=== PATIENT | female | born 1950 | race Caucasian/White ===

== ENCOUNTER 2019-01-22 06:44 | Inpatient (IN) ==
[2019-01-16 16:25] LABS: Appearance,Urine CLEAR; Bacteria,Urine 0 /hpf (0); Bilirubin,Urine NEG (NEG); Color,Urine YELLOW; Glucose,Urine (UA) NEGATIVE (NEG); Leukocyte Esterase,Urine NEG /uL (NEG); Mucus,Urine FEW /hpf (0); Protein,Urine NEG (NEG); Specific Gravity,Urine 1.024 (1.000-1.035); Urine Blood 0.03 mg/dL (<0.03); Urine Hyaline Cast 9 /lpf (0-2); Urine RBC 1 /hpf (0-1); Urine Squamous Epithelial Cell 4 /hpf (0-4); Urine WBC 4 /hpf (0-4); Urobilinogen,Urine NEG (NEG)
[2019-01-16 17:05] LABS: Basophils # (Auto) 0 K/mcL (0.0-0.3); Basophils % (Auto) 0.3 % (0.0-2.0); Eosinophils # (Auto) 0.1 K/mcL (0.0-0.7); Eosinophils % (Auto) 1.7 % (0.0-7.0); Granulocytes % (Auto) 65.6 % (38.0-78.0); Lymphocytes # (Auto) 2.1 K/mcL (1.5-4.8); Lymphocytes % (Auto) 24.6 % (15.5-49.0); Mean Cell Volume 90.9 fL (80.0-100.0); Monocytes # (Auto) 0.7 K/mcL (0.1-0.9); Monocytes % (Auto) 7.8 % (1.0-12.0); Platelet Count 240 K/mcL (140-440); RBC 4.28 M/mcL (4.00-5.20); Red Cell Distribution Width 12.5 % (11.5-14.5)
[2019-01-16 17:33] LABS: Estimated Average Glucose(eAG) 151 mg/dL; Hemoglobin A1C 6.9 % HGB (4.0-6.0)
[2019-01-16 18:15] LABS: Blood Urea Nitrogen 21 mg/dl (8-23)
[2019-01-22] MEDS ORDERED: VANCOMYCIN 1,500 MG in 0.9 % SODIUM CHLORIDE 500 ML IV SCH (07:00)
[2019-01-22] MEDS ORDERED: 0.9 % SODIUM CHLORIDE 9 ML, KETOROLAC 30 MG, ROPIVACAINE HCL/PF 49.5 ML, EPINEPHrine 0.... IJ SCH (07:00)
[2019-01-22] MEDS ORDERED: PREGABALIN 75 MG CAPSULE PO SCH (07:00)
[2019-01-22] MEDS ORDERED: CELECOXIB 200 MG CAPSULE PO SCH (07:00)
[2019-01-22] MEDS ORDERED: oxyCODONE 10 MG TAB.ER.12H PO SCH (07:00)
[2019-01-22] MEDS ORDERED: TRANEXAMIC ACID 1,000 MG/10 ML VIAL IV ONE ×2 (09:20→11:22)
[2019-01-22] MEDS ORDERED: LIDOCAINE HCL/PF 100 MG/5 ML SYRINGE IV ONE (09:20)
[2019-01-22] MEDS ORDERED: KETAMINE 100 MG/ML ML IV ONE (09:20)
[2019-01-22] MEDS ORDERED: ONDANSETRON 4 MG/2 ML VIAL IV ONE (09:20)
[2019-01-22] MEDS ORDERED: ROPIVACAINE HCL/PF 30 ML VIAL IJ ONE (09:20)
[2019-01-22] MEDS ORDERED: MIDAZOLAM 5 MG/5 ML VIAL IV ONE (09:20)
[2019-01-22] MEDS ORDERED: PROPOFOL 200 MG/20 ML VIAL IV ONE (09:20)
[2019-01-22] MEDS ORDERED: GLYCOPYRROLATE 0.2 MG/ML VIAL IV ONE (09:20)
[2019-01-22] MEDS ORDERED: PHENYLEPHRINE 10 MG/ML VIAL IV ONE (09:20)
[2019-01-22] MEDS ORDERED: ONDANSETRON 4 MG/2 ML VIAL IV PRN ×2 (11:08→11:22)
[2019-01-22] MEDS ORDERED: fentaNYL 100 MCG/2 ML VIAL IV PRN (11:08)
[2019-01-22] MEDS ORDERED: MEPERIDINE 25 MG/ML SYRINGE IV PRN (11:08)
[2019-01-22] MEDS ORDERED: IPRATROPIUM/ALBUTEROL 3 ML AMPUL.NEB NEB PRN (11:08)
[2019-01-22] MEDS ORDERED: METHOCARBAMOL 1,000 MG/10 ML VIAL IV PRN (11:08)
[2019-01-22] MEDS ORDERED: KETOROLAC 15 MG/ML VIAL IV PRN (11:08)
[2019-01-22] MEDS ORDERED: ACETAMINOPHEN 1,000 MG/100 ML BOTTLE IV ONE (11:08)
[2019-01-22] MEDS ORDERED: LACTATED RINGERS 1,000 ML IV SCH (11:15)
[2019-01-22] MEDS ORDERED: POLYETHYLENE GLYCOL 3350 17 GM PACKET PO PRN (11:22)
[2019-01-22] MEDS ORDERED: HYDROmorphone 2 MG/ML VIAL IV PRN (11:22)
[2019-01-22] MEDS ORDERED: BISACODYL 10 MG SUPP.RECT PR PRN (11:22)
[2019-01-22] MEDS ORDERED: FLEETS ADULT ENEMA PR PRN (11:22)
[2019-01-22] MEDS ORDERED: BENZOCAINE/MENTHOL 1 LOZENGE PO PRN (11:22)
[2019-01-22] MEDS ORDERED: MAGNESIUM HYDROXIDE 30 ML ORAL.SUSP PO PRN (11:22)
--- NOTE | 2019-01-22 11:22 | Brief Operative Note ---
Date of procedure: 01/22/19 Pre-op diagnosis: R knee Djd Post-op diagnosis: same Procedure: Right robotic assisted total knee arthroplasty Grafts/Implants: Yes ([place] Triathlon CR 2 femur, 2 tibia, 10mm insert, 31 patella) Anesthesia: spinal, GLMA Findings: severe arthritis Complications: none Surgeon: Rafael Acosta Bed Machine Operator: Frank Montoya Estimated blood loss (cc): 30 Specimens Removed/Pathology: none sent Condition: stable Disposition: PACU
[2019-01-22] MEDS ORDERED: traMADol 50 MG TABLET PO PRN (11:26)
[2019-01-22] MEDS ORDERED: DEXTROSE 50% 50 ML VIAL IV PRN (11:28)
[2019-01-22] MEDS ORDERED: DEXTROSE 31 GM ORAL.SUSP PO PRN (11:28)
[2019-01-22] MEDS ORDERED: ceFAZolin 1 GM VIAL IV SCH (11:30)
--- NOTE | 2019-01-22 12:08 | XRay Report ---
CLINICAL INFORMATION: Post-op total knee. COMPARISON: None. FINDINGS: Total knee prostheses is anatomically aligned. No osseous abnormality. Periarticular gas and soft tissue swelling seen as expected. IMPRESSION: Negative Interpreted and Authenticated by: Turner Conrad 01/22/19
--- NOTE | 2019-01-22 12:10 | Operative Note ---
DATE OF OPERATION: 01/22/2019 PREOPERATIVE DIAGNOSIS: Right knee severe awjq-[id number] osteoarthritis. POSTOPERATIVE DIAGNOSIS: Right knee severe emrl-ft-liod osteoarthritis. PROCEDURE PERFORMED: Right robotic-assisted total knee arthroplasty placing a [place] Triathlon size 2 cruciate retaining femoral component, size 2 tibial baseplate, 10 mm X3 tibial insert with a 31 mm patellar button. SURGEON: Rafael Acosta M.D. PHOTOTYPESETTING EQUIPMENT MONITOR: Paul Montoya PA-C. ANESTHESIA: Spinal plus general. DRAINS: None. SPECIMENS: Bone cuts which were discarded. BLOOD LOSS: 30 mL. POSTOPERATIVE CONDITION: Stable. INDICATIONS FOR SURGERY: This is a 68-year-old female who has had progressive worsening knee pain, no longer responsive to conservative measures. Radiographs showed [id number]-[id number]-pvqa osteoarthritis. FINDINGS AT SURGERY: She had severe arthritis. Post implantation showed good limb alignment, patellar tracking, and joint stability. PROCEDURE IN DETAIL: The patient had been seen preoperatively. Informed consent had been obtained after discussion of risks and benefits of surgery. Risks including, but not limited to, bleeding; infection, possibly requiring implant removal and prolonged IV antibiotics; injury to nerves, blood vessels, other surrounding structures; anesthetic risks; incomplete or no resolution of symptoms; stiffness; swelling; pain; instability; DVT and pulmonary embolus risks; and the possibility of needing further revision joint surgery. She understood these risks and wished to proceed. Correct operative site was marked and then patient received spinal anesthesia. She was then taken to the operating room and LMA general given. The right lower extremity was carefully prepped and draped in normal sterile fashion, and a time-out was performed verifying patient name, operative site, and plan. Esmarch was used to exsanguinate the extremity and tourniquet was inflated. Ioban had been used to cover all skin surfaces. A midline incision was made with scalpel through skin and subcutaneous tissue. Hemostasis obtained with Bovie cautery. Irrisept was irrigated and then a medial parapatellar arthrotomy made. Subperiosteal exposure was done of the anterior medial tibia. The menisci were excised. Retropatellar fat pad was excised. We went ahead and placed our femoral and tibial checkpoints. We then resected our patella freehand technique and placed a cut protector. We then made two stab incisions over the tibia and two over the femur and placed bicortical pins and the arrays were connected. We then did our hip center of rotation check, as well as a green probe to the medial and lateral malleoli of the ankle. Double-checks were done of the femoral and tibial check points. Blue probe was then used to do mapping and then a rongeur was used to remove osteophytes. We checked our gap balance in flexion and extension. We then adjusted implants until we had 17 mm gaps everywhere except 18 mm on the lateral compartment in extension. We had 1 degree of varus on the femur and a 4 degrees on the femur. We then used the robotic arm to make our bone cuts. We then trialed implants. The patella was drilled and lateral facetectomy limited was done. Patella tracked well, so we went ahead and removed the trials. Definitive implants were opened except for the tibial insert. We irrigated with Irrisept while antibiotic cement was mixed. After a minute we pulse lavaged with saline, and then CO2 gun was used to clean and dry the cancellous bone surface. We cemented the tibia and removed excess cement. We cemented the femur and removed the excess and then a 9 insert trial was impacted. The knee was taken into extension and the patellar button was cemented. We checked our extension, and it looked like we were right down to 0 degrees of flexion, so we were feeling like this would potentially hyperextend over time. Patellar button was cemented. We went ahead and removed our checkpoints, filled the joint with Irrisept. The pins were removed from the tibia and femur. We injected pain cocktail in the pericapsular and subcutaneous tissue. After cement had fully hardened, we flexed the knee up, removed the trial insert. We trialed a 10 mm insert, which we felt improved her likelihood of not going into hyperextension. This was opened. We removed the trial, injected the posterior medial capsule with pain cocktail. We irrigated with Irrisept and then impacted the definitive insert. We then filled the joint with Irrisept, after a minute pulse lavaged with saline, and then the knee was placed in 45 degrees of flexion. A #2 FiberWire vevfce-sk-eqmcu was used around the superior quadrant of the patella, #1 Vicryl juuzjv-qt-zfeljm around the inferior quadrant, running #1 Vicryl was used for patellar tendon and quad tendon. Final Irrisept irrigation was done, after a minute final pulse lavage, and then fat was closed with some Vicryl and then 2-0 Monocryl for subcutaneous and eleazar for skin. Xeroform and sterile dressing were applied. Tourniquet was released. The patient was awakened, extubated, and transferred to recovery in stable condition. BJAnthony:beverly Job ID: [id number] Doc ID: [id number] Rafael Acosta MD
[2019-01-22] MEDS: KETOROLAC 30 MG/ML VIAL IV SCH ×3 (13:31→23:15)
[2019-01-22] MEDS: 0.9 % SODIUM CHLORIDE 1,000 ML IV SCH ×3 (13:32→23:16)
[2019-01-22] MEDS: INSULIN LISPRO 1 UNIT/0.01 ML UNIT SQ SCH ×3 (13:36→20:58)
[2019-01-22] MEDS: 0.9 % SODIUM CHLORIDE 10 ML SYRINGE IV SCH ×2 (13:51→20:58)
[2019-01-22] MEDS: glipiZIDE 5 MG TABLET PO SCH (17:59)
[2019-01-22] MEDS: OMEPRAZOLE 20 MG CAPSULE PO SCH (17:59)
[2019-01-22] MEDS: DOCUSATE SODIUM 100 MG CAPSULE PO SCH (20:56)
[2019-01-22] MEDS: ASPIRIN 325 MG ENTERIC COATED TABLET PO SCH (20:56)
[2019-01-22] MEDS: INSULIN NPH, HUMAN 1 UNIT/0.01 ML UNIT SQ SCH (20:57)
[2019-01-22] MEDS ORDERED: SENNOSIDES 1 TABLET PO SCH (21:00)
[2019-01-22] MEDS ORDERED: SIMVASTATIN 20 MG TABLET PO SCH (21:00)
[2019-01-22] MEDS ORDERED: VANCOMYCIN 1,500 MG in 0.9 % SODIUM CHLORIDE 500 ML IV ONE (21:00)
[2019-01-22] MEDS: oxyCODONE/APAP 5/325MG TABLET PO PRN ×2 (21:07→22:55)
[2019-01-23] MEDS: oxyCODONE/APAP 5/325MG TABLET PO PRN ×2 (03:22→12:34)
[2019-01-23] MEDS: KETOROLAC 30 MG/ML VIAL IV SCH ×2 (05:21→11:35)
[2019-01-23] MEDS: 0.9 % SODIUM CHLORIDE 10 ML SYRINGE IV SCH ×2 (05:21→13:41)
[2019-01-23] MEDS: OMEPRAZOLE 20 MG CAPSULE PO SCH (07:30)
[2019-01-23] MEDS: glipiZIDE 5 MG TABLET PO SCH (07:30)
--- NOTE | 2019-01-23 07:32 | Discharge Summary ---
Providers - Providers Patient information: Note initiated : 01/23/19 at 7:30 am Service Date, if different from initiated Date: [] Patient: Elizabeth Bermeo 68 y/o F admitted on 01/22/19 for Right Robotic Total Knee Arthroplasty. Chief Complaint: [] Discharge date: 01/23/19 Hospitalization Hospital course: Pt was admitted for a R TKA. Pt underwent the procedure on the day of admission. Pt spent one night on the floor for IV pain meds, IV abx, and PT. Pt discharged post-op day 1. Pt will take ASA for DVT prophylaxis. Will f/u at [facility] in 2 weeks. Discharge diagnosis: R Knee OA Exam - Exam Clean and dry: Yes Weight bearing status: as tolerated Ortho Discharge - TKA - Patient Instructions Diet: Regular Diet Activity: activity as tolerated Total Knee Protocol: For Total Knee: Start ROM JOSE with stationary bike or rocking chair. Work on gaining full extension of knee. Posterior dislocation precautions provided. Hip abductor strengthening and gait training instructions provided. Apply Cryocuff as instructed. Dressing Care: May shower in 2 days, May shower in 3 days - Follow Up Plan Follow Up Appointments: Frank Montoya PA-C [Physician Sustainability Executive Director] - 02/06/19 11:20 am Disposition: Home, Self-Care Prognosis: Good Rehab Potential: Good Overall status at discharge: patient is back to baseline - Orders For Discharge Prescriptions: Aspirin [Ecotrin] 325 mg PO BID #30 tab.ec oxyCODONE/APAP [Percocet 5-325 mg] 1 - 2 tab PO Q4HP PRN #75 tab PRN Reason: Pain Level 3-6 Pending Studies Resuscitation Status Full Code Diet Consistent Carbohydrate Diet Start SunJan 22 1127 Aspirin (Ecotrin) 325 mg PO BID [facility] Last Admin: 01/22/19 20:56 Dose: 325 mg Documented by: ARSENIO Diagnostic Test (Pha) (Accu-Chek) 1 each FS ACHS [facility] Last Admin: 01/22/19 21:00 Dose: 1 each Documented by: Admin: 01/22/19 17:31 Dose: 1 each Documented by: Admin: 01/22/19 13:36 Dose: 1 each Documented by: TAYLOR Docusate Sodium (Colace) 100 mg PO BID [facility] Last Admin: 01/22/19 20:56 Dose: 100 mg Documented by: ARSENIO Glipizide (Glucotrol) 5 mg PO BIDAC [facility] Last Admin: 01/22/19 17:59 Dose: 5 mg Documented by: TAYLOR Hydromorphone HCl (Dilaudid) 0 mg IV Q2HP PRN PRN Reason: PAIN LEVEL > 6 Last Admin: 01/22/19 22:55 Dose: 1 mg Documented by: ARSENIO Sodium Chloride (Sodium Chloride 0.9%) 1,000 mls @ 100 mls/hr IV .Q10H [facility] Last Admin: 01/22/19 23:16 Dose: 100 mls/hr Documented by: Infusion: 01/22/19 23:16 Dose: 100 mls/hr Documented by: Admin: 01/22/19 23:04 Dose: Not Given Documented by: Admin: 01/22/19 13:32 Dose: 100 mls/hr Documented by: TAYLOR Insulin [facility]alog) [facility] Last Admin: 01/22/19 20:58 Dose: 4 units Documented by: Admin: 01/22/19 17:32 Dose: Not Given Documented by: Admin: 01/22/19 13:36 Dose: Not Given Documented by: TAYLOR Insulin Human NPH (Humalin N) 15 unit SQ BID [facility] Last Admin: 01/22/19 20:57 Dose: 15 units Documented by: ARSENIO Ketorolac Tromethamine (Toradol) 30 mg IV Q6 [facility] Stop: 01/24/19 06:01 Last Admin: 01/23/19 05:21 Dose: 30 mg Documented by: Admin: 01/22/19 23:15 Dose: 30 mg Documented by: Admin: 01/22/19 17:59 Dose: 30 mg Documented by: Admin: 01/22/19 13:31 Dose: 30 mg Documented by: TAYLOR Omeprazole (Prilosec) 20 mg PO BIDAC [facility] Last Admin: 01/22/19 17:59 Dose: 20 mg Documented by: TAYLOR Oxycodone/Acetaminophen (Percocet 5-325 Mg) 0 tab PO Q4HP PRN PRN Reason: PAIN LEVEL 3-6 Last Admin: 01/23/19 03:22 Dose: 2 tab Documented by: Admin: 01/22/19 22:55 Dose: 1 tab Documented by: Admin: 01/22/19 21:07 Dose: 1 tab Documented by: ARSENIO Senna (Senokot) 2 tab PO HS [facility] Last Admin: 01/22/19 20:56 Dose: 2 tab Documented by: ARSENIO Simvastatin (Zocor) 20 mg PO HS [facility] Last Admin: 01/22/19 20:56 Dose: 20 mg Documented by: ARSENIO Sodium Chloride (Saline Flush) 10 ml IV Q8 [facility] Last Admin: 01/23/19 05:21 Dose: Not Given Documented by: Admin: 01/22/19 20:58 Dose: Not Given Documented by: Admin: 01/22/19 13:51 Dose: Not Given Documented by: TAYLOR Shift Summary 01/23/19 03:54 Shift Summary by Santiago Arana Pt has rested fairly well tonight - sleeps w/ her on CPAP & R.A.. Pain fairly well controlled - Dilaudid 1mg IV given x1 @ 2305, & Percocet 5 (2) PO last @ 0325. Numbness resolved to her RT leg, yet she has HX of carpel tunnel to her RT wrist & has numbness & tingling to her RT hand. NS infusing to her RT F/A @ 100ml/hr. Edouard wrap RT knee - C,D,I - cryo-cuff on & off through the shift. Pt has been up AMB to & from B.R., as well as out in jules x1 - gait stable w/ FWW & SBA. Voiding QS - last PVR was 30ml @ 2255 - no further scans needed. VS - WNL on R.A.. HS blood sugar was 181 - scheduled NPH & S.S. coverage given. She is A&O x4, calm, pleasant, & cooperative. Initialized on 01/23/19 03:54 - END OF NOTE
[2019-01-23] MEDS: ASPIRIN 325 MG ENTERIC COATED TABLET PO SCH (08:45)
[2019-01-23] MEDS: INSULIN NPH, HUMAN 1 UNIT/0.01 ML UNIT SQ SCH (08:45)
[2019-01-23] MEDS: DOCUSATE SODIUM 100 MG CAPSULE PO SCH (08:45)
[2019-01-23] MEDS ORDERED: VITAMIN D3 1,000 UNIT TABLET PO SCH (09:00)
[2019-01-23] MEDS ORDERED: LOSARTAN 50 MG TABLET PO SCH (09:00)
[2019-01-23] MEDS: 0.9 % SODIUM CHLORIDE 1,000 ML IV SCH (11:04)
[2019-01-23] MEDS: INSULIN LISPRO 1 UNIT/0.01 ML UNIT SQ SCH ×2 (11:32→11:34)
== END 2019-01-23 15:20 | disposition home or self-care (01) | DRG 554 ==
LOC: MEDSUR 06:44
PROVIDERS: ADMIT Orthopaedic Surgery; ATTEND Orthopaedic Surgery